=== PATIENT | male | born 1965 | race Caucasian/White ===

== ENCOUNTER 2022-08-17 11:31 | Observation (INO) | payer OTHER ==
[2022-08-17 12:19] LABS: SARS-CoV-2 Antigen Rapid Res Negative (Negative)
[2022-08-17] MEDS ORDERED: LOPERAMIDE HCL 2 MG CAPSULE PO PRN (14:00)
[2022-08-17] MEDS ORDERED: DIPHENHYDRAMINE 25 MG TAB/CAP PO PRN (14:00)
[2022-08-17] MEDS ORDERED: ONDANSETRON 4 MG/2 ML VIAL IV PRN (14:00)
[2022-08-17] MEDS ORDERED: POLYETHYL GLY 3350 17 GM/DOSE PO PRN (14:00)
[2022-08-17] MEDS ORDERED: ACETAMINOPHEN 325 MG TABLET PO PRN (14:00)
[2022-08-17] MEDS ORDERED: ONDANSETRON 4 MG (ODT) TAB PO PRN (14:00)
[2022-08-17] MEDS: NACHLORIDE 0.45% 1,000 ML IV SCH (14:05)
[2022-08-17 14:24] VITALS: BMI 23.7
[2022-08-17 15:22] LABS: Potassium 3.8 mmol/L (3.5-5.1)
[2022-08-17 15:27] LABS: Albumin 4.1 g/dL (3.4-5.0); Bilirubin Direct 0.2 mg/dL (0-0.2); Magnesium 2.4 mg/dL (1.8-2.4)
[2022-08-17 15:38] LABS: Bilirubin Total 1.1 mg/dL (0.2-1.0); Protein, Total 8.2 g/dL (6.4-8.2); Thyroid Stimulating Hormone 2.06 uIU/mL (0.360-3.740)
[2022-08-17 15:46] LABS: Protime INR 1.02
[2022-08-17] MEDS ORDERED: INFLUENZA VACCINE (for 6+ mo) 0.5 ML DOSE IMVAC ONE (16:00)
--- NOTE | 2022-08-17 16:01 | RAD REPORT ---
EXAM DESCRIPTION: CT - Pelvis Wo Cont - 08/17/2022 3:23 pm CLINICAL HISTORY: Pelvic pain/inguinal hernia COMPARISON: None. TECHNIQUE: Computed axial tomography of the pelvis was obtained. Coronal and sagittal reconstruction performed. IV contrast was not requested. Oral contrast given All CT scans are performed using dose optimization technique as appropriate and may include automated exposure control or mA/KV adjustment according to patient size. FINDINGS: Small bilateral inguinal hernias contain fat. The visualized bowel caliber normal. Visualized wall thickness is normal. No evidence of diverticulit is. No ascites IMPRESSION: Small bilateral inguinal hernias contain fat
[2022-08-17 16:07] LABS: Absolute Lymphocytes (CBC) 1.9 K/uL (0.7-4.9); Hematocrit 43.4 % (39.6-49.0); Lymphocytes % 24.8 % (15.3-44.8); MCV 96.8 fL (80-100); MPV 8.4 fL (7.6-11.3); RBC Red Blood Cell Count 4.48 M/uL (4.33-5.43)
[2022-08-17] MEDS ORDERED: Ringers Lactate 1,000 ML IV ONE (16:09)
--- NOTE | 2022-08-17 16:41 | P.CNS ---
Date of Consult: 08/17/22 Reason for consult: Left groin pain History of present illness: Patient is a 57-year-old gentleman comes in with acute onset of left groin pain. Pain has been increasingly worse over the last 2 to 3 days. Valsalva maneuvers make the pain worse. Patient states that after he gets up and walks around for 5 to 10 minutes he develops an very tender mass in the left inguinal region. Patient denies any nausea, vomiting, diarrhea, constipation, blood in stool, dysuria or hematuria. Patient denies any sore throat, runny nose, cough, headaches, dizziness, chest pain, fever or chills. Patient had bilateral inguinal hernia repair done when he was an infant. Review of systems: Otherwise unremarkable Past medical history: Negative Past surgical history: Fractured nose Allergies: None Social history: Patient does smoke tobacco and drinks occasionally and has been counseled Family history: Noncontributory Vital signs: Stable, afebrile Physical exam: Awake alert oriented x3 Head and neck exam: Cranial nerves II through XII grossly within normal limits, no neck masses, no JVD, throat clear and neck supple Chest: Clear Heart: S1-S2 Abdomen: Soft, nondistended, positive bowel sound, nontender Extremity: Neurovascular intact, nontender and with full range of motion Neuro: Nonfocal : Normal penis and testicles. Tender mass in the left groin. Small right inguinal hernia. Diagnostic data: CT of the pelvis reviewed with Dr. Hairston and laboratory data reviewed. Assessment: Symptomatic with history of incarcerated left inguinal hernia and right inguinal hernia Plan/recommendation: Repair of bilateral inguinal hernia. Patient understands risks, benefits and alternatives and agrees to procedure. Patient is n.p.o. and will receive 1 g of Ancef. CC: Dr. Reeves's office
[2022-08-17] MEDS: CEFAZOLIN SODIUM 1 GM/VIAL ONE ×3 (17:23→18:07)
[2022-08-17] MEDS ORDERED: propofoL 200 MG/20 ML VIAL IV ONE ×2 (17:46→18:55)
[2022-08-17] MEDS ORDERED: FENTANYL CITR 100 MCG/2 ML ONE (17:47)
[2022-08-17] MEDS ORDERED: ROCURONIUM 50 MG/5 ML VIAL IV ONE (17:47)
[2022-08-17] MEDS ORDERED: LIDOCAINE 2% MPF 5 ML VIAL ONE (17:47)
[2022-08-17] MEDS ORDERED: KETOROLAC 30 MG/ML INJ ONE (18:13)
[2022-08-17] MEDS ORDERED: ONDANSETRON 4 MG/2 ML VIAL ONE (18:13)
[2022-08-17] MEDS ORDERED: dexAMETHasone 10 MG/ML VIAL ONE (18:13)
[2022-08-17] MEDS ORDERED: GLYCOPYRROLATE 0.2 MG/ML SYR ONE ×3 (18:39→18:46)
[2022-08-17] MEDS ORDERED: METOCLOPRAMIDE 10 MG/2mL INJ ONE (18:46)
[2022-08-17] MEDS ORDERED: NEOSTIGMINE 1 MG/ML -5 ML ONE (18:48)
[2022-08-17] MEDS: Ringers Lactate 1,000 ML IV ONE ×2 (18:50→19:08)
--- NOTE | 2022-08-17 18:56 | RAD REPORT ---
EXAM DESCRIPTION: Nelson Garcia (2 Views)08/17/2022 2:00 pm CLINICAL HISTORY: Abdominal pain COMPARISON: None FINDINGS: The lungs appear clear of acute infiltrate. The heart is normal size IMPRESSION: No acute abnormalities displayed
--- NOTE | 2022-08-17 19:14 | P.OP ---
Date of Service: 08/17/22 Preop diagnosis: History of incarcerated left inguinal hernia, right inguinal hernia Postop diagnosis: Same Procedure performed: Bilateral inguinal hernia repair Surgeon: Rosalio Solorzano MD Polygraph Examiner: Molly BLAS Estimated blood loss: Minimal Specimen: Hernia sac and cord lipoma on both sides Findings: As above Anesthesia: General Complications: None Drains: None Fluids and blood products: Nonapplicable Disposition: Recovery room Operative note: Patient brought to the OR and placed in the supine position. General anesthesia begun. Patient prepped and draped in the usual sterile fashion. Marcaine 0.5% infiltrated in a field block fashion in the left groin. A 4 cm oblique incision made between the pubic tubercle and the anterior iliac superior spine on the left side. Subcutaneous tissue divided. Gracie's fascia identified and divided. Aponeurosis identified and mobilized inferiorly. Aponeurosis opened through the external ring. Ilioinguinal nerve identified retracted out of the field of dissection. Cord mobilized at the pubic tubercle and skeletonized. Cord lipoma and indirect sac identified in the anteromedial portion of the cord. Cord lipoma excised and the base tied off with 2-0 chromic suture. High ligation of the sac performed with 2-0 Prolene suture ligature and freehand tie. Hernia sac excised sent to pathology as specimen. Marlex mesh plug placed in the internal ring and secured with VersaTack stapler. Onlay mesh placed in the inguinal floor and secured medially to the pubic tubercle, superior to the conjoined tendon, inferiorly to the shelving edge and laterally to each other. Cord structures ilioinguinal nerve placed back in anatomic location. 2-0 Prolene used to close the aponeurosis. 3-0 chromic used to reapproximate Gracie's fascia. Staple used to close skin. Similar procedure was performed on the right inguinal hernia. Patient had a prior evidence of rep air. Cord structures and cord lipoma as well as the hernia sac was above the aponeurosis. The cord was mobilized and the hernia sac and cord lipoma were identified. 2-0 chromic suture was used to tie off the base of the cord lipoma and the lipoma was sent to pathology. 2-0 Prolene was used to tie off the base of the hernia sac as well as freehand tie and the hernia sac was sent to pathology. In the internal ring was identified and Marlex mesh plug was placed and secured with VersaTack stapler. An onlay mesh was placed in the standard fashion. It was secured medially to the pubic tubercle inferiorly to the shelving edge superior to the conjoined tendon laterally to each other. Cord structures were placed back in his anatomic location. Then 3-0 chromic was used to reapproximate Gracie's fascia. And was helen was used to close skin. CC: Dr. Reeves's office
[2022-08-17] MEDS ORDERED: HYDROMORPHONE HCL 1 MG/ML INJ IV PRN (19:32)
[2022-08-17] MEDS ORDERED: HYDROCODONE/APAP 7.5/325 MG TAB PO PRN (19:32)
[2022-08-18] MEDS: NACHLORIDE 0.45% 1,000 ML IV SCH ×2 (03:20→06:05)
[2022-08-18 04:59] LABS: Potassium 4.5 mmol/L (3.5-5.1)
[2022-08-18 08:49] VITALS: O2SAT 96
[2022-08-18 08:51] VITALS: BP 121/64; TEMP 97.4
--- NOTE | 2022-08-18 08:53 | PN ---
Date of Progress Note: 08/18/2022 Subjective: The patient is awake, alert. No complaint. Objective: Vital Signs: Stable, afebrile. Abdomen: Benign. Extremities: Dressing clean, dry, and intact. Assessment: Status post bilateral inguinal hernia repair. Recommendations: The patient cleared from Surgery for discharge. The patient can follow up with me in the office in 1 week. Discharge instructions given. DUSTIN/MARLY Voice ID: [id number] Report ID: [id number]
--- NOTE | 2022-08-19 06:02 | EKG ---
Test Date: 2022-08-17 Test Time: 14:49:24 Printing Estimator: ROSSANA MEASUREMENT RESULTS: Intervals: Rate: 58 NJ: 142 QRSD: 76 QT: 438 QTc: 429 [place]: P: 267 NJ: 142 QRS: 65 T: 86 INTERPRETIVE STATEMENTS: Unusual P axis, possible ectopic atrial bradycardia Nonspecific ST and T wave abnormality Abnormal ECG No previous ECG available for comparison Electronically Signed On 08-19-22 06:00:02 CDT by Cain Ludwig
== END 2022-08-18 10:43 | disposition home or self-care (01) ==
LOC: 2ND 13:14
PROVIDERS: ADMIT Internal Medicine; ATTEND Internal Medicine
PROC: 0WUF0JZ Supplement Abdominal Wall with Synthetic Substitute, Open Approach (ICD-10-PCS; principal; 2022-08-17 17:00)
DX: K40.90 Unilateral inguinal hernia, without obstruction or gangrene, not specified as recurrent (principal); F17.210 Nicotine dependence, cigarettes, uncomplicated; F10.90 Alcohol use, unspecified, uncomplicated; Z20.822 Contact with and (suspected) exposure to COVID-19
CPT/HCPCS: 93005; 87040; 85025; 80048 ×2; 36415; 83735; 84100; 85610; 80076; 88302; 85730; 82652; 84443; 82607; 72192; 71046; 94010; 87811; 49505; J2704 ×2; J2001; J3010; J1100; J2710; J7120 ×2; J2405; J0690; G0378; G0379; J2765

== ENCOUNTER 2023-08-08 10:57 | Emergency (ER) | payer OTHER ==
--- OUTSIDE RECORDS SUMMARY | 2023-08-08 11:01 | XMS REPORT | Continuity of Care Document ---
:1965 Author Organization [facility] t Address [address] [place] [address] [place] [id number] Care Team Providers Name Role Phone Unavailable Unavailable Unavailable Problems This patient has no known problems. Allergies, Adverse Reactions, Alerts This patient has no known allergies or adverse reactions. Medications This patient has no known medications. Procedures This patient has no known procedures. Encounters Start End Encounter Admission Attending Care Care Encounter Source Date/Time Date/Time Type Type Clinicians Facility Department ID 2023-08-03 2023-08-03 Outpatient [facility] [id number] [place] 10:23:42 10:23:42 [id number] [place] 2023-07-27 2023-07-27 Outpatient [facility] [id number] [place] 11:38:58 11:38:58 [id number] [facility] [place] 2023-07-15 2023-07-15 Outpatient [facility] [id number] [place] 09:19:27 09:19:27 [id number] [facility] [place] Results Test Description Test Time Test Comments Results Result Comments Source CULTURE, URINE 2023-07-29 SPECIMEN NUMBER: [id number] CULTURE, URINE SPECIMEN NUMBER: [id number] SPECIMEN COMMENT: URINE SOURCE: URINE REPORT STATUS: FINAL FINAL REPORT: 07/29/2023 NO GROWTH AFTER 36 HOURS INCUBATION UNLESS OTHERWISE INDICATED, ALL TESTING PERFORMED AT [facility] [address] [place] [id number] CONVEYOR BELT INSTALLER: MAGALI VANCE M.D. CLIA NUMBER [id number] [place]. [id number] CT/NG, NAAT, URINE 2023-07-28 17:54:44 Test Item Value Reference Range Interpretation Comme nts CHLAMYDIA, NAAT, URINE (test NEGATIVE NEGATIVE Testing is performed with Alyson code = 43059) EDDA 6800/880 0 systems usingreal-time polymerase chain reaction (PCR) method. A negative result does not exclude low level infection, spec imensampling error, or collection e rror. GONORRHEA, NAAT, URINE (test NEGATIVE NEGATIVE Testing is performed with Imimtek code = 99131) EDDA 6800/880 0 systems usingreal-time polymerase chain reaction (PCR) method. A negative result does not exclude low level infection, spec imensampling error, or collection e rror. UNLESS OTHERWISE INDIC ATED, ALL TESTING PERFORMED AT [facility], [place] [id number] 4 CONVEYOR BELT INSTALLER: LU VANCE M.D. [facility] NUMBER [id number] [place] N O. [id number]
--- NOTE | 2023-08-08 12:17 | ER ---
Nurse's Notes [facility] Name: Dima Sosa Age: 58 yrs Sex: Male : 1965 Arrival Date: 08/08/2023 Time: 10:57 Bed 7 Private MD: Diagnosis: Hydrocele, unspecified Presentation: 08/08 11:07 Chief complaint: Patient states: was playing basket ball , my right testicle iw is larger. Coronavirus screen: At this time, the client does not indicate any symptoms associated with coronavirus-19. Ebola Screen: Patient negative for fever greater than or equal to 101.5 degrees Fahrenheit, and additional compatible Ebola Virus Disease symptoms Patient denies exposure to infectious person. Patient denies travel to an Ebola-affected area in the 21 days before illness onset. No symptoms or risks identified at this time. Initial Sepsis Screen: Does the patient meet any 2 criteria? No. Patient's initial sepsis screen is negative. Does the patient have a suspected source of infection? No. Patient's initial sepsis screen is negative. Risk Assessment: Do you want to hurt yourself or someone else? Patient reports no desire to harm self or others. Onset of symptoms was August 04, 2023. 11:07 Method Of Arrival: Ambulatory iw 11:07 Acuity: ISIS 3 iw Triage Assessment: 12:14 General: Appears in no apparent distress. Behavior is calm, cooperative, appropriate ko1 for age. Pain: Denies pain. Historical: - Allergies: 12:14 No Known Allergies; ko1 - Immunization history:: Adult Immunizations up to date. - Social history:: Smoking status: Patient denies any tobacco usage or history of. - Family history:: not pertinent. - Hospitalizations: : No recent hospitalization is reported. Screenin:14 [facility] ED Fall Risk Assessment (Adult) History of falling in the last 3 months, ko1 including since admission No falls in past 3 months (0 pts) Confusion or Disorientation No (0 pts) Intoxicated or Sedated No (0 pts) Impaired Gait No (0 pts) Mobility Assist Device Used No (0 pt) Altered Elimination No (0 pt) Score/Fall Risk Level 0 - 2 = Low Risk Oriented to surroundings, Maintained a safe environment, Educated pt \T\ family on fall prevention, incl call for assistance when getting out of bed, Assessed \T\ reinforced patient's understanding of fall precautions, Provided non-skid footwear, Hourly rounding (assess needs \T\ fall precautionary measures) done, Used ambulatory aids as needed (educated on \T\ assisted with), Used gait belt as appropriate. Abuse screen: Denies threats or abuse. Denies injuries from another. Nutritional screening: No deficits noted. Tuberculosis screening: No symptoms or risk factors identified. Assessment: 12:14 Neuro: No deficits noted. Cardiovascular: No deficits noted. Respiratory: No deficits ko1 noted. GI: No deficits noted. : Reports right testicle pain. EENT: No deficits noted. Derm: No deficits noted. Musculoskeletal: No deficits noted. Vital Signs: 11:07 BP 163 / 76; Pulse 58; Resp 16; Temp 97.4; Pulse Ox 100% on R/A; iw 12:22 BP 156 / 72; Pulse 60; Resp 16; Pulse Ox 99% ; ko1 ED Course: 11:01 Patient arrived in ED. mg5 11:02 Maurice Martinez MD is Attending Physician. rn 11:08 Triage completed. iw 11:08 Arm band placed on. iw 11:30 US Scrotum Testicles In Process Unspecified. EDMS 12:06 Eliana Beach, RN is Primary Nurse. ko1 12:14 Patient has correct armband on for positive identification. Bed in low position. Call ko1 light in reach. Provided Education on: na. 12:14 No provider procedures requiring assistance completed. Patient did not have IV access ko1 during this emergency room visit. 12:16 Jared Veliz MD is Referral Physician. rn Administered Medications: No medications were administered Medication: 12:14 VIS not applicable for this client. ko1 Outcome: 12:16 Discharge ordered by . rn 12:22 Discharged to home ambulatory, ko1 12:22 Condition: stable 12:22 Discharge instructions given to patient, Instructed on discharge instructions, follow up and referral plans. Demonstrated understanding of instructions, follow-up care, 12:25 Patient left the ED. ko1 Signatures: Dispatcher [employer] EDMS Tracy Vázquez RN RN iw Maurice Martinez MD MD rn Oliver, Kathy, RN RN ko1 Lillian Garcia mg5 Corrections: (The following items were deleted from the chart) 11:08 11:07 Pulse 58bpm; Resp 16bpm; Pulse Ox 100% RA; Temp 97.4F; iw iw
--- NOTE | 2023-08-08 12:17 | EDPHYS ---
Physician Documentation [facility] Name: Dima Sosa Age: 58 yrs Sex: Male : 1965 Arrival Date: 08/08/2023 Time: 10:57 Bed 7 Private MD: ED Physician Maurice Martinez HPI: 08/08 12:13 This 58 yrs old Male presents to ER via Ambulatory with complaints of Testicular rn Problem. 12:13 The patient presents with scrotal pain, swelling. Onset: The symptoms/episode rn began/occurred 1 month(s) ago. Modifying factors: The symptoms are alleviated by nothing, the symptoms are aggravated by pressure. Severity of symptoms: At their worst the symptoms were mild, in the emergency department the symptoms are unchanged. The patient has not experienced similar symptoms in the past. The patient has not recently seen a physician. Patient reports has been having right-sided scrotal swelling for at least a month or longer. Started after his hernia surgery repair. Was reading online and send told him might be torsion so came to rule it out. Reports got worse recently after playing basketball. No direct trauma. No fever. No urinary symptoms.. Historical: - Allergies: 12:14 No Known Allergies; ko1 - Immunization history:: Adult Immunizations up to date. - Social history:: Smoking status: Patient denies any tobacco usage or history of. - Family history:: not pertinent. - Hospitalizations: : No recent hospitalization is reported. ROS: 12:13 Constitutional: Negative for fever, chills, and weight loss, Abdomen/GI: Negative for rn abdominal pain, nausea, vomiting, diarrhea, and constipation, : Positive for right scrotal swelling and pain Exam: 12:13 Constitutional: This is a well developed, well nourished patient who is awake, alert, rn and in no acute distress. Male : Right-sided scrotal swelling with mild tenderness. Normal testicular lie. No evidence of inguinal hernias present. No discoloration or fluctuance of the scrotal wall or skin. Vital Signs: 11:07 BP 163 / 76; Pulse 58; Resp 16; Temp 97.4; Pulse Ox 100% on R/A; iw 12:22 BP 156 / 72; Pulse 60; Resp 16; Pulse Ox 99% ; ko1 MDM: 11:02 Patient medically screened. rn 12:15 Differential diagnosis: Hydrocele, varicocele, testicular torsion, epididymitis. Data rn reviewed: vital signs, nurses notes, radiologic studies, ultrasound, and as a result, I will discharge patient. Counseling: I had a detailed discussion with the patient and/or guardian regarding the historical points, exam findings, and any diagnostic results supporting the discharge/admit diagnosis, radiology results, the need for outpatient follow up, to return to the emergency department if symptoms worsen or persist or if there are any questions or concerns that arise at home. Special discussion: I discussed with the patient/guardian in detail that at this point there is no indication for admission to the hospital. It is understood, however, that if the symptoms persist or worsen the patient needs to return immediately for re-evaluation. Based on the history and exam findings, there is no indication for further emergent testing or inpatient evaluation. I discussed with the patient/guardian the need to see the urologist for further evaluation of the symptoms. 08/08 11:02 Order name: Scrotum Testicles rn Administered Medications: No medications were administered Disposition Summary: 08/08/23 12:16 Discharge Ordered Notes: Location: Home rn Problem: an ongoing problem rn Symptoms: have improved rn Condition: Stable rn Diagnosis - Hydrocele, unspecified rn Followup: rn - With: Jared Veliz MD - When: As needed - Reason: Recheck today's complaints, Re-evaluation by your physician Discharge Instructions: - Discharge Summary Sheet rn - Hydrocele, Adult rn Forms: - Medication Reconciliation Form rn - Thank You Letter rn - Antibiotic engine turner - Prescription Opioid Use rn - Patient Portal Instructions rn - Leadership Thank You Letter rn Signatures: Dispatcher [employer] [facility] Maurice Martinez MD MD rn Oliver, Kathy, RN RN ko1 Corrections: (The following items were deleted from the chart) 12:07 11:03 Urinalysis+U.LAB.BRZ ordered. [facility] EDPA
--- NOTE | 2023-08-08 12:43 | RAD REPORT ---
EXAM DESCRIPTION: US - Scrotum Testicles - 08/08/2023 11:28 am CLINICAL HISTORY: PAIN COMPARISON: Pelvis Wo Cont dated 08/17/2022 TECHNIQUE: Sonographic grayscale and color flow images of the scrotum were obtained. FINDINGS: The right testicle measures 4.0 x 2.9 x 3.5 cm. No intratesticular masses or evidence of t esticular torsion. The left testicle measures 4.2 x 2.4 x 3.2 cm. No intratesticular masses or evidence of testicular to rsion. Both epididymides are normal in size and appearance. Bilateral hydroceles, larger on the right and small on the left. Incidentally noted 2 millimeter left epididymal head cyst. IMPRESSION: Large right and small left hydroceles. No testicular parenchymal abnormalities. Incident ally noted 2 millimeter left epididymal head cyst may represent a small spermatocele.
== END 2023-08-08 12:25 | disposition home or self-care (01) ==
LOC: ER 10:57
DX: N43.3 Hydrocele, unspecified (principal)
CPT/HCPCS: 76870; 99282

== ENCOUNTER 2024-10-10 07:21 | Emergency (ER) | payer OTHER ==
--- OUTSIDE RECORDS SUMMARY | 2024-10-10 07:23 | XMS REPORT | Continuity of Care Document ---
Author Name Unknown Address [address] [facility] [place] [address] [facility] thconnect Address [address] [facility] [address] [place] [address] Care Team Providers Care Marriage And Family Counselor Name Role Phone Unavailable Unavailable Unavailable Encounters Start Date/Time End Date/Time Encounter Type Admission Type Attending Clinicians Care Facility Care Department Encounter ID Source 2023-08-03 10:23:42 2023-08-03 10:23:42 Outpatient [facility] [id number] [place] 2023-07-27 11:38:58 2023-07-27 11:38:58 Outpatient [facility] [id number] [place] 2023-07-15 09:19:27 2023-07-15 09:19:27 Outpatient [facility] [id number] [place] Results Test Description Test Time Test Comments Results Result Co mments Source CULTURE, URINE 2023-07-29 09:36:43 SPECIMEN NUMBER: [id number] CULTURE, URINE SPECIMEN NUMBER: [id number] SPECIMEN COMMENT: URINE SOURCE: URINE REPORT STATUS: FINAL FINAL REPORT: 07/29/2023 NO GROWTH AFTER 36 HOURS INCUBATION UNLESS OTHERWISE INDICATED, ALL TESTING PERFORMED AT [facility] [address] [place] [id number] ORDER TRACER: MAGALI VANCE M.D. CLIA NUMBER [id number] [facility]. [id number]
[2024-10-10 08:06] LABS: Absolute Basophils 0.1 K/uL (0-0.5); Absolute Eosinophils 0.4 K/uL (0-0.5); Absolute Lymphocytes (CBC) 1.8 K/uL (0.7-4.9); Absolute Monocytes 0.9 K/uL (0.1-1.3); Absolute Neutrophil 6.7 K/uL (1.8-8.0); Basophils % 1.2 % (0-1.3); Eosinophils % 3.7 % (0-4.4); Hematocrit 40.5 % (39.6-49.0); Lymphocytes % 17.9 % (15.3-44.8); MCH 31.4 pg (27.0-35.0); MCHC 34.5 g/dL (32.0-36.0); MPV 8.6 fL (7.6-11.3); Monocytes % 9.1 % (3.3-12.3); Neutrophils % 68.1 % (41.7-73.7); Nucleated Red Blood Cells % 0.1 % (0-0); Platelets 202 thou/uL (152-406); RBC Red Blood Cell Count 4.45 M/uL (4.33-5.43); Red Cell Distribution Width 13.1 % (12.1-15.2)
[2024-10-10 08:11] LABS: PT Prothrombin Time 12.5 SECONDS (9.4-12.5); PTT, Activated Partial Thromb 51.9 SECONDS (24.3-36.9); Protime INR 1.12
--- NOTE | 2024-10-10 08:19 | RAD REPORT ---
EXAM: CT Head Brain Wo Cont HISTORY: DIZZINESS COMPARISON: None TECHNIQUE: Multiple contiguous axial images were obtained for a CT of the brain without contrast. Sag ittal and coronal reformats were performed. One or more of the following dose reduction techniques were used: Automated exposure control, adjus tment of the mA and kV according to patient size, and iterative reconstruction. Unless otherwise specified, incidental findings do not require dedicated imaging follow-up. FINDINGS: No evidence of hydrocephalus, intracranial hemorrhage, or extra-axial fluid collection. Bilateral frontal and right high parasagittal parietal regions of juxtacortical hypoattenuation with mild mass effect. Heterogeneity of the biswas-white matter junction in the right frontal region may indicate a small underlying mass. Similar findings in the right inferior cerebellar hemisphere and al guy the left posterior cerebellar folia, again with findings which may suggest presence of small masses along the cerebellar cortex. Foci of mild hyperdensity along the inferior cerebellar folia on the right may be accentuated by beam hardening artifact. Some mass effect with partial effacement of the fourth ventricle especially on the right. No hyperdense vessels sign. The calvarium is intact. The visualized paranasal sinuses and mastoid air cells are essentially clear . IMPRESSION: Bilateral anterior frontal and right high parietal regions of juxtacortical regions of hypoattenuatio n with some mass effect. Similar changes along the bilateral cerebellar hemispheres with some mass effect resulting in partial effacement of the fourth ventricle especially on the right. The findings may relate to multifocal ischemia (possibly of embolic nature), versus primary or metastatic malignancy. Please correlate clinically, and consider additional evaluation by contrast enhanced brai n MRI. THIS REPORT CONTAINS FINDINGS THAT MAY BE CRITICAL TO PATIENT CARE. The findings were verbally commun icated via telephone to Kee Weinstein on 10/10/2024 8:17 AM.
--- NOTE | 2024-10-10 08:25 | EDPHYS ---
[facility] Name: Dima Sosa Age: 59 yrs Sex: Male : 1965 Arrival Date: 10/10/2024 Time: 07:21 Bed 14 Private MD: Angel Reeves V ED Physician Kee Weinstein HPI: 10/10 07:44 This 59 yrs old Male presents to ER via Ambulatory with complaints of Headache, ms3 Vomiting, Dizziness. 07:44 Dima Sosa is a 59-year-old male who presents to the Emergency Department with ms3 a five-day history of symptoms. He reports experiencing a headache and dizziness, primarily when standing or walking, which affects his balance. The dizziness is accompanied by nausea and vomiting, especially after standing up from a lying position. He has not experienced these symptoms before. The headache intensifies when he changes positions, such as getting up or tilting his head forward. On a pain scale, he rates his headache as a 2 or 3 out of 10. He attempted to alleviate the dizziness with regular Dramamine, as suggested by his son, but found it ineffective. . Historical: - Allergies: 07:33 No Known Allergies; iw - Home Meds: 07:33 None [Active]; iw - PMHx: 07:33 None; iw - PSHx: 07:33 hernia; iw - Immunization history:: Adult Immunizations unknown. - Infectious Disease History:: Denies. - Social history:: Smoking status: Patient reports the use of cigarette tobacco products, cigars. ROS: 07:44 Constitutional: Negative for fever, and chills. Cardiovascular: Negative for chest ms3 pain, and palpitations. Respiratory: Negative for shortness of breath, cough, wheezing, and pleuritic chest pain, MS/Extremity: Negative for injury and deformity, Skin: Negative for injury, rash, and discoloration, 07:44 Abdomen/GI: Positive for nausea and vomiting, 07:44 Neuro: Positive for dizziness, Exam: 07:44 Constitutional: This is a well developed, well nourished patient who is awake, alert, ms3 and in no acute distress. Head/Face: Normocephalic, atraumatic. Chest/axilla: Normal chest wall appearance and motion. Nontender with no deformity. Cardiovascular: Regular rate and rhythm with a normal S1 and S2. No gallops, murmurs, or rubs. Normal PMI, no JVD. No pulse deficits. Respiratory: Lungs have equal breath sounds bilaterally, clear to auscultation and percussion. No rales, rhonchi or wheezes noted. No increased work of breathing, no retractions or nasal flaring. Abdomen/GI: Soft, non-tender, with normal bowel sounds. No distension or tympany. No guarding or rebound. No evidence of tenderness throughout. Skin: Warm, dry with normal turgor. Normal color with no rashes, no lesions, and no evidence of cellulitis. 07:44 Neuro: Orientation: is normal, to person, place, time \T\ situation. Mentation: is normal, Memory: is normal, Cranial nerves: CN I not tested, CN II- XII are normal as tested, Cerebellar function: normal finger to nose testing, heel to rothman testing is normal, Motor: is normal, Sensation: is normal, Gait: is unsteady, 08:56 ECG was reviewed by the Attending Physician. ms3 Vital Signs: 07:32 BP 181 / 80; Pulse 63; Resp 16; Pulse Ox 100% on R/A; Weight 90.72 kg; Height 6 ft. 2 iw in. ; 07:40 Temp 98.2(O); aa5 08:12 BP 166 / 71; Pulse 53; Resp 16 S; Pulse Ox 98% on R/A; aa5 09:00 BP 163 / 77; Pulse 57; Resp 18 S; Pulse Ox 99% on R/A; aa5 10:16 BP 167 / 75; Pulse 59; Resp 16 S; Pulse Ox 100% on R/A; aa5 10:45 BP 149 / 61; Pulse 55; Resp 16; Pulse Ox 97% on R/A; db 12:00 BP 145 / 76; Pulse 54; Resp 16; Temp 98.2; Pulse Ox 97% on R/A; db 07:32 Body Mass Index 25.68 (90.72 kg, 187.96 cm) iw MDM: 07:38 Medical Screening Exam initiated ms3 07:44 Differential diagnosis: intracerebral hemorrhage, sinusitis, Vertigo. ms3 08:28 Data reviewed: vital signs, nurses notes, lab test result(s), radiologic studies, CT ms3 scan, and as a result, I will transfer patient to higher level of care. Consideration of Admission/Observation Patient to be transferred to higher level of care. Management of patient was discussed with the following: Radiology- Possibly metastatic brain lesions with mass effect.. I considered the following discharge prescriptions or medication management in the emergency department Medications were administered in the Emergency Department. See MAR. Independent interpretation of the following test(s) in the Emergency Department EKG: See my EKG interpretation above CT Scan: My interpretation is CT Head without contrast images reviewed by me shows area of hyperattenuation in right frontal lobe. Counseling: I had a detailed discussion with the patient and/or guardian regarding the historical points, exam findings, and any diagnostic results supporting the discharge/admit diagnosis, lab results, radiology results, the need to transfer to another facility, for higher level of care. 08:47 ED course: Discussed case with Dr Thao and he accepts patient to Neuro ICU. ms3 10/10 07:39 Order name: Basic Metabolic Panel; Complete Time: 08:29 ms3 10/10 07:39 Order name: CBC with Diff; Complete Time: 08:20 ms3 10/10 07:39 Order name: Hepatic Function; Complete Time: 08:29 ms3 10/10 07:39 Order name: Magnesium; Complete Time: 08:29 ms3 10/10 07:39 Order name: Protime (+inr); Complete Time: 08:20 ms3 10/10 07:39 Order name: Ptt, Activated; Complete Time: 08:20 ms3 10/10 07:39 Order name: Troponin High Sensitivity; Complete Time: 08:29 ms3 10/10 07:39 Order name: CT Head Brain wo Cont; Complete Time: 08:20 ms3 10/10 07:39 Order name: Chest Single View XRAY; Complete Time: 09:24 ms3 10/10 07:39 Order name: Cardiac monitoring; Complete Time: 08:08 ms3 10/10 07:39 Order name: EKG - Nurse/Tech; Complete Time: 08:08 ms3 10/10 07:39 Order name: IV Saline Lock; Complete Time: 08:08 ms3 10/10 07:39 Order name: Labs collected and sent; Complete Time: 08:08 ms3 10/10 07:39 Order name: NPO; Complete Time: 08:08 ms3 10/10 07:39 Order name: O2 Per Protocol; Complete Time: 08:08 ms3 10/10 07:39 Order name: O2 Sat Monitoring; Complete Time: 08:08 ms3 EC:56 Rate is 53 beats/min. Rhythm is regular. QRS Ernest is Normal. OH interval is normal. QRS ms3 interval is normal. Clinical impression: NSR w/ Non-specific ST/T Changes. Interpreted by me. Reviewed by me. Administered Medications: 08:40 Drug: Decadron - Dexamethasone IVP 10 mg IVP once Route: IVP; Site: right forearm; aa5 09:00 Follow up: Response: No adverse reaction aa5 Disposition Summary: 10/10/24 08:24 Transfer Ordered Notes: Transfer Location: [facility] ms3 Reason: Higher level of care ms3 Condition: Stable ms3 Problem: new ms3 Symptoms: are unchanged ms3 Accepting Physician: (10/10/24 12:35) db Diagnosis - Headache ms3 - Vomiting ms3 - Brain Lesions ms3 Forms: - Medication Reconciliation Form ms3 - SBAR form ms3 Critical care time excluding procedures: 10:52 Critical care time: Bedside Care: 30 minutes, Consultation: 5 minutes, Family ms3 Intervention: 5 minutes. Total time: 40 minutes Signatures: Dispatcher [employer] Tracy Streeter, RN RN iw Rica Valdez, RN RN aa5 Kee Weinstein DO DO ms3 Beba Saldaña RN RN db Corrections: (The following items were deleted from the chart) 07:39 07:39 BASIC METABOLIC PANEL+C.LAB.BRZ ordered. EDMS EDMS 07:39 07:39 CBC+H.LAB.BRZ ordered. EDMS EDMS 07:39 07:39 HEPATIC FUNCTION+C.LAB.BRZ ordered. EDMS EDMS 07:39 07:39 MAGNESIUM+C.LAB.BRZ ordered. EDMS EDMS 07:39 07:39 PROTIME (+INR)+COAG.LAB.BRZ ordered. EDMS EDMS 07:39 07:39 PTT, ACTIVATED+COAG.LAB.BRZ ordered. EDMS EDMS 07:39 07:39 Troponin High Sensitivity+C.LAB.BRZ ordered. EDMS EDMS 07:39 07:39 Head Brain Wo Cont+CT.RAD.BRZ ordered. EDMS EDMS 07:40 07:40 Chest Single View+RAD.RAD.BRZ ordered. EDMS EDMS 08:25 08:24 ms3 ms3 12:35 08:25 ms3 db
--- NOTE | 2024-10-10 08:25 | ER ---
Nurse's Notes [facility] Name: Dima Sosa Age: 59 yrs Sex: Male : 1965 Arrival Date: 10/10/2024 Time: 07:21 Bed 14 Private MD: Angel Reeves V Diagnosis: Headache;Vomiting;Brain Lesions Presentation: 10/10 07:31 Chief complaint: Patient states: 5-6 days of dizziness, worse when he gets up, vomiting iw when he gets up, mild headache, feels like pressure. Coronavirus screen: At this time, the client does not indicate any symptoms associated with coronavirus-19. Initial Sepsis Screen: Does the patient meet any 2 criteria? No. Patient's initial sepsis screen is negative. Does the patient have a suspected source of infection? No. Patient's initial sepsis screen is negative. Risk Assessment: Do you want to hurt yourself or someone else? Patient reports no desire to harm self or others. 07:31 Method Of Arrival: Ambulatory iw 07:31 Acuity: ISIS 3 iw 07:32 Ebola Screen: No symptoms or risks identified at this time. Onset of symptoms was iw October 05, 2024. Historical: - Allergies: 07:33 No Known Allergies; iw - Home Meds: 07:33 None [Active]; iw - PMHx: 07:33 None; iw - PSHx: 07:33 hernia; iw - Immunization history:: Adult Immunizations unknown. - Infectious Disease History:: Denies. - Social history:: Smoking status: Patient reports the use of cigarette tobacco products, cigars. Screenin:09 [facility] ED Fall Risk Assessment (Adult) History of falling in the last 3 months, aa5 including since admission No falls in past 3 months (0 pts) Confusion or Disorientation No (0 pts) Intoxicated or Sedated No (0 pts) Impaired Gait No (0 pts) Mobility Assist Device Used No (0 pt) Altered Elimination No (0 pt) Score/Fall Risk Level 0 - 2 = Low Risk Oriented to surroundings, Maintained a safe environment, Educated pt \\T\\ family on fall prevention, incl call for assistance when getting out of bed. Abuse screen: Denies threats or abuse. Nutritional screening: No deficits noted. Tuberculosis screening: No symptoms or risk factors identified. Assessment: 07:40 General: Appears comfortable, Behavior is calm, cooperative. Pain: Complains of pain in aa5 head Pain currently is 0 out of 10 on a pain scale. Quality of pain is described as pressure, Pain began 5-6 days ago Is intermittent, Aggravated by "sitting up or getting up". Neuro: Level of Consciousness is awake, alert, obeys commands, Oriented to person, place, time, situation, Reports dizziness, that it's intermittent x 5-6 days ago headache. Cardiovascular: Heart tones S1 S2 present Rhythm is regular. Respiratory: Airway is patent Respiratory effort is even, unlabored, Respiratory pattern is regular, symmetrical. GI: Abdomen is round non-distended, Bowel sounds present X 4 quads. Abd is soft and non tender X 4 quads. Reports nausea, vomiting. : No signs and/or symptoms were reported regarding the genitourinary system. EENT: No signs and/or symptoms were reported regarding the EENT system. Derm: Skin is pink, warm \\T\\ dry. Musculoskeletal: Range of motion: intact in all extremities. 08:10 Reassessment: Pt back from CT scan . aa5 08:12 Reassessment: Patient is alert, oriented x 3, equal unlabored respirations, skin aa5 warm/dry/pink. Pt sitting up in bed watching TV. . 10:15 Reassessment: Patient is alert, oriented x 3, equal unlabored respirations, skin aa5 warm/dry/pink. Awaiting EMS for transfer to [facility] . 10:24 Reassessment: MD at bedside . aa5 12:33 Reassessment: Patient appears in no apparent distress at this time. Patient and/or db family updated on plan of care and expected duration. Pain level reassessed. Patient is alert, oriented x 3, equal unlabored respirations, skin warm/dry/pink. EMS ARRIVED FOR PATIENT TRANSPORT TO [facility]. PATIENT IN NAD. REPORT GIVEN TO EMS. Vital Signs: 07:32 BP 181 / 80; Pulse 63; Resp 16; Pulse Ox 100% on R/A; Weight 90.72 kg; Height 6 ft. 2 iw in. ; 07:40 Temp 98.2(O); aa5 08:12 BP 166 / 71; Pulse 53; Resp 16 S; Pulse Ox 98% on R/A; aa5 09:00 BP 163 / 77; Pulse 57; Resp 18 S; Pulse Ox 99% on R/A; aa5 10:16 BP 167 / 75; Pulse 59; Resp 16 S; Pulse Ox 100% on R/A; aa5 10:45 BP 149 / 61; Pulse 55; Resp 16; Pulse Ox 97% on R/A; db 12:00 BP 145 / 76; Pulse 54; Resp 16; Temp 98.2; Pulse Ox 97% on R/A; db 07:32 Body Mass Index 25.68 (90.72 kg, 187.96 cm) iw ED Course: 07:22 Patient arrived in ED. as 07:23 Angel Reeves MD is Private Physician. as 07:24 Kee Weinstein DO is Attending Physician. ms3 07:31 Rica Valdez, PRICILA is Primary Nurse. aa5 07:32 Triage completed. iw 07:34 Arm band placed on. iw 07:40 Patient has correct armband on for positive identification. Placed in gown. Bed in low aa5 position. Call light in reach. Side rails up X2. Client placed on continuous cardiac and pulse oximetry monitoring. NIBP monitoring applied. cardiac monitor on. Pulse ox on. NIBP on. 07:42 EKG done, by ED staff, reviewed by Kee Weinstein DO. aa5 07:45 Initial lab(s) drawn, by me, sent to lab. Inserted saline lock: 20 gauge in right aa5 antecubital area, using aseptic technique. Blood collected. Flushed with 10 mL NS. 08:09 CT Head Brain wo Cont In Process Unspecified. EDMS 08:12 Chest Single View XRAY In Process Unspecified. EDMS 08:16 No provider procedures requiring assistance completed. aa5 08:39 TC called to initiate transfer to [facility], spoke with Jaimee. ty 09:19 MOT recieved. ty 09:22 Nurse to Nurse paper handed to Nurse for report. ty 10:02 [facility] called for transport, ETA 75 min. ty 10:06 [facility] called for pt transport, ETA 1145am. ty 12:33 Provided Education on: TRANSFER. Warm blanket given. Pillow given. db 12:33 Patient admitted, IV remains in place. db Administered Medications: 08:40 Drug: Decadron - Dexamethasone IVP 10 mg IVP once Route: IVP; Site: right forearm; aa5 09:00 Follow up: Response: No adverse reaction aa5 Medication: 08:10 VIS not applicable for this client. aa5 Outcome: 08:24 ER care complete, transfer ordered by ms3 12:33 Transferred by ground EMS to [facility], Transfer form completed. db X-rays sent w/ patient. 12:33 Condition: stable 12:33 Instructed on the need for transfer, 12:35 Patient left the ED. db Signatures: Dispatcher [employer] Delilah Lee Irene, RN RN iw Rica Valdez RN RN aa5 Kee Weinstein DO DO ms3 Beba Saldaña RN RN db Rakan Russ ty Corrections: (The following items were deleted from the chart) 07:33 07:31 Chief complaint: Patient states: 5-6 days of dizziness, worse when he gets up, iw vomiting when he gets up, mild headache iw 10:05 10:02 [facility] called for transport, ETA 55 min ty ty
[2024-10-10 08:29] LABS: Albumin 3.7 g/dL (3.4-5.0); Albumin/Globulin Ratio 0.9 (1.1-1.8); Bilirubin Direct 0.3 mg/dL (0-0.2); Bilirubin Indirect, Calculated 0.7 mg/dL (0.2-0.8); Globulin 4.2 g/dL (2.3-3.5); Magnesium 2.2 mg/dL (1.6-2.4); Protein, Total 7.9 g/dL (6.4-8.2)
[2024-10-10] MEDS ORDERED: dexAMETHasone 10 MG/ML VIAL ONE (08:38)
--- NOTE | 2024-10-10 08:51 | RAD REPORT ---
EXAMINATION: ONE VIEW CHEST XR CLINICAL INDICATION: Male, 59 years old.,Dizziness TECHNIQUE: Frontal chest projection is submitted. Examination is limited by patient positioning and t echnique. COMPARISON: 08/17/2022 FINDINGS: The lungs are well inflated. Mild central and infrahilar interstitial prominence. No pneumothorax or sizable effusion. The heart is normal in size. Mediastinal contours are unremarkable. IMPRESSION: Mild central and perihilar interstitial prominence, may reflect mild interstitial edema
[2024-10-10 12:40] VITALS: TEMP 98.2
[2024-10-10 12:47] VITALS: O2SAT 97
[2024-10-10 12:49] VITALS: BP 145/76
--- NOTE | 2024-10-12 13:42 | EKG ---
Test Date: 2024-10-10 Test Time: 07:46:18 Millinery Copyist: KATHIE MEASUREMENT RESULTS: Intervals: Rate: 53 AK: 114 QRSD: 92 QT: 428 QTc: 401 [place]: P: 61 AK: 114 QRS: 67 T: 0 INTERPRETIVE STATEMENTS: Sinus bradycardia Septal infarct, age undetermined Abnormal ECG Compared to ECG 08/17/2022 14:49:24 Myocardial infarct finding now present ST (T wave) deviation no longer present Electronically Signed On 10-12-24 13:37:16 SPEECH AND LANGUAGE SPECIALIST by Sage [place]
== END 2024-10-10 12:35 | disposition short-term general hospital (02) ==
LOC: ER 07:21
DX: G93.9 Disorder of brain, unspecified (principal); R51.9 Headache, unspecified; R11.10 Vomiting, unspecified
CPT/HCPCS: 93005; 85025; 80048; 36415; 83735; 85610; 80076; 85730; 84484; 70450; 71045; 96374; 99285; J1100